=== PATIENT | female | born 1990 | race Two or more races ===

== ENCOUNTER 2021-03-22 13:15 | Emergency (ER) | payer BC, OTHER ==
[~2021-03-22] VITALS: Ht 167.6 cm; Wt 104.3 kg
[2021-03-22 13:23] VITALS: BP 150/92
== END 2021-03-22 15:30 | disposition home or self-care (01) ==
LOC: ER 13:15
DX: S00.03XA Contusion of scalp, initial encounter (principal); W22.8XXA Striking against or struck by other objects, initial encounter; Y93.89 Activity, other specified; Y92.89 Other specified places as the place of occurrence of the external cause; Y99.8 Other external cause status
CPT/HCPCS: 70450